=== PATIENT | female | born 1960 | race Caucasian/White ===

== ENCOUNTER → 2020-06-05 | Outpatient (REF) | payer OTHER ==
[2020-06-05 16:46] LABS: BLOOD UREA NITROGEN 18 MG/DL (7-18); CHLORIDE LEVEL 107 MEQ/L (98-107); CREATININE FOR GFR 0.79 MG/DL (0.55-1.30); GLOMERULAR FILTRATION RATE > 60.0 (>51); GLUCOSE, FASTING 98 MG/DL (70-100); POTASSIUM SERUM 3.6 MEQ/L (3.5-5.1); SODIUM LEVEL 142 MEQ/L (136-145)
[2020-06-05 16:47] LABS: CALCIUM LEVEL 8.6 MG/DL (8.5-10.1); CARBON DIOXIDE LEVEL 30 MEQ/L (21-32); MAGNESIUM LEVEL 2.1 MG/DL (1.8-2.4)
[2020-06-05 17:03] LABS: TOTAL 25(OH) VITAMIN D 39.9 NG/ML (30.0-100.0)
== END ==
LOC: M SFHCRHEU 11:26
PROVIDERS: ATTEND Internal Medicine
DX: E55.9 Vitamin D deficiency, unspecified (principal); R25.2 Cramp and spasm